=== PATIENT | female | born 1975 | race Caucasian/White ===

== ENCOUNTER 2018-11-11 13:35 | Emergency (ER) | payer OTHER ==
[2018-11-11 14:33] VITALS: BP 174/94; PULSE 105; RESP 16; TEMP 98.8
[2018-11-11] MEDS ORDERED: HYDROcodone/APAP 7.5-325MG 1 EACH TAB PO ONE (14:46)
--- NOTE | 2018-11-11 15:37 | XR ---
EXAMINATION TYPE: XR Hip LT and AP Pelvis DATE OF EXAM: 11/11/2018 COMPARISON: NONE HISTORY: Pain. Possible hip dislocation on the left. Patient describes a pop. TECHNIQUE: A single AP view of the pelvis is obtained. Two views of the left hip are obtained. FINDINGS: There is no acute fracture/dislocation evident in the pelvis. The hip and sacroiliac join ts appear symmetric and unremarkable. The overlying soft tissue appears unremarkable. There is a fra cture deformity of the right inferior pubic ramus. This appears subacute as there is no extensive amanda kira formation. Two views of left hip show no acute fracture or dislocation. No focal lytic or sclerotic lesion seen in the proximal left femur. There is a curvilinear density at the medial aspect of the left femoral neck that could relate to atherosclerosis or heterotopic ossification. The overlying soft tissue is u nremarkable. There is a small cam deformity of the left femoral head neck junction. IMPRESSION: 1. No evidence of left hip fracture or dislocation. Small cam deformity and moderate bilateral femora l acetabular arthropathy. 2. Subacute appearing fracture of the right inferior pubic ramus.
--- NOTE | 2018-11-11 15:47 | ED ---
Extremity Problem HPI - General Chief complaint: Extremity Problem,Nontraumatic Stated complaint: Poss Hip Dislocated Time Seen by Provider: 11/11/18 14:38 Source: patient, RN notes reviewed Mode of arrival: ambulatory Limitations: physical limitation - History of Present Illness Initial comments: This a 43-year-old female presents emergency Department chief complaint left hip pain. Patient states that she rolled over in bed and felt a severe pop with sudden onset of pain. Patient states that she can barely move her left hip secondary to pain. Denies any falls no recent trauma. Denies any prior surgeries or any problems her left hip in the past. Patient has no symptoms that radiate into her leg denies any discoloration, anesthesias, pain in her lower leg. She does have chronic back pain no she takes Tylenol Motrin for. - Related Data Previous Rx's Medication Instructions Recorded HYDROcodone/APAP 7.5-325MG [[place] 1 tab PO Q6HR PRN 3 Days #12 tab 11/11/18 7.5-325] Ibuprofen [Motrin] 600 mg PO Q8HR PRN #30 tab 11/11/18 Allergies Allergy/AdvReac Type Severity Reaction Status Date / Time No Known Allergies Allergy Verified 11/11/18 14:30 Review of Systems ROS Statement: Those systems with pertinent positive or pertinent negative responses have been documented in the HPI. ROS Other: All systems not noted in ROS Statement are negative. Past Medical History Past Medical History: No Reported History Past Surgical History: No Surgical Hx Reported Past Psychological History: No Psychological Hx Reported Smoking Status: Current every day smoker Past Alcohol Use History: Daily Past Drug Use History: Marijuana General Exam Limitations: physical limitation General appearance: alert, in no apparent distress Respiratory exam: Present: normal lung sounds bilaterally. Absent: respiratory distress, wheezes, rales, rhonchi, stridor Cardiovascular Exam: Present: regular rate, normal rhythm, normal heart sounds. Absent: systolic murmur, diastolic murmur, rubs, gallop, clicks Extremities exam: Present: other (Left hip limited range of motion secondary pain there is diffuse tenderness, pedal pulses are equal bilaterally the lower extremities equal color equal warmth) Skin exam: Present: warm, dry, intact, normal color. Absent: rash Course Vital Signs 11/11/18 14:30 Temperature 98.8 F Pulse Rate 105 H Respiratory 16 Rate Blood Pressure 174/94 O2 Sat by Pulse 100 Oximetry Medical Decision Making - Medical Decision Making 43-year-old female presented for left hip pain. X-ray was obtained that showed possibility of a pelvic fracture. CT was obtained shows avulsion versus ligamentous versus muscular skeletal injury. I do feel clinically that she has a ligamentous versus muscular tear. She will follow-up with orthopedics she'll be provided pain medication anti-inflammatories. Disposition Clinical Impression: Hip strain, Muscle tear Disposition: HOME SELF-CARE Condition: Stable Instructions (If sedation given, give patient instructions): Hip Sprain (ED) Additional Instructions: Please return to the Emergency Department if symptoms worsen or any other concerns. Prescriptions: Ibuprofen [Motrin] 600 mg PO Q8HR PRN #30 tab PRN Reason: Pain HYDROcodone/APAP 7.5-325MG [[place] 7.5-325] 1 tab PO Q6HR PRN 3 Days #12 tab PRN Reason: Pain Is patient prescribed a controlled substance at d/c from ED?: Yes When asked, does pt state using other controlled substances?: No If prescribed controlled substance>3 days was MAPS reviewed?: Prescribed <3 Days If opioid is for acute pain is fill amount 7 days or less?: Yes If Rx opioid, was Start Talking consent form obtained?: Yes Referrals: Jay Saldaña DO [Primary Care Provider] - 1-2 days Ricardo Salazar DO [Doctor of Osteopathic Medicine] - 1-2 days Time of Disposition: 16:38
--- NOTE | 2018-11-11 16:09 | CT ---
EXAMINATION TYPE: CT pelvis wo con DATE OF EXAM: 11/11/2018 COMPARISON: X-ray 11/11/2018 HISTORY: Left hip pain with inability to move left leg. Patient denies injury CT DLP: 185.3 mGycm Automated exposure control for dose reduction was used. FINDINGS: Osseous structures are intact. No acute fracture. Arthropathy of the hips with hypertrophic change of the acetabulum suggestive of femoral acetabular impingement. No erosive changes. Tiny linear density along the medial margin of the left femoral neck to small to characterize. Degenerative change involving the lower lumbar spine with facet arthropathy. IMPRESSION: THERE IS A LINEAR DENSITY ALONG THE LEFT FEMORAL NECK WHICH IS NONSPECIFIC AND TOO SMALL TO CHARACTER IZE. TINY AVULSION INJURY IN THE DIFFERENTIAL DIAGNOSIS. ADDITIONALLY THERE IS AN AREA OF LOW ATTENUA TION ALONG THE MUSCULATURE IN THE REGION OF THIS DENSITY. THIS COULD REPRESENT A MUSCULAR OR TENDINOU S INJURY OR SMALL AMOUNT OF FLUID. MRI RECOMMENDED FOR FURTHER EVALUATION.
== END 2018-11-11 17:07 | disposition home or self-care (01) ==
LOC: EC 13:35
DX: S76.012A Strain of muscle, fascia and tendon of left hip, initial encounter (principal); F17.200 Nicotine dependence, unspecified, uncomplicated; X50.9XXA Other and unspecified overexertion or strenuous movements or postures, initial encounter
CPT/HCPCS: 72192; 73502; 99284

== ENCOUNTER 2024-03-31 11:04 | Inpatient (IN) | payer MEDICAID, OTHER ==
--- NOTE | 2024-03-31 11:26 | ED ---
General Adult HPI - General Chief complaint: Psychiatric Symptoms Stated complaint: Fall-R wrist injury Time Seen by Provider: 03/31/24 11:20 Source: patient, RN notes reviewed Mode of arrival: wheelchair Limitations: no limitations - History of Present Illness Initial comments: This is a 48-year-old female resents emergency department with multiple comp laints. States that she has been having pain to her right wrist over the past few weeks after she fell and has had residual pain since. She has full range of motion of the right wrist however this exacerbates pain. She denies paresthesias. Denies previous surgeries right wrist. Additionally, states that she has been having difficulty with swallowing over the past 5 to 6 months. States that she feels food gets stuck in her throat and will have episodes of emesis. She is also had a amount of weight loss over this time period as well due to not eating. Patient has a history of alcohol abuse and currently drinks approximately 12 cans of beer per day. She also smokes about a pack of ciga rettes per day over the past 30+ years. Patient has lost in follow-up with primary and specialists over the past 2 years. - Related Data Previous Rx's Medication Instructions Recorded Folic Acid 1 mg PO DAILY 30 Days #30 tab 04/04/24 Melatonin 10 mg PO HS 30 Days #60 tab 04/04/24 Mirtazapine [Remeron] 7.5 mg PO HS 30 Days #15 tab 04/04/24 Multivitamins, Thera [Multivitamin 1 each PO DAILY 30 Days #30 tab 04/04/24 (formulary)] Nicotine 14Mg/24Hr Patch [Habitrol] 1 patch TRANSDERM DAILY patch 04/04/24 Pantoprazole [Protonix] 40 mg PO AC-BRKFST 30 Days #30 tab 04/04/24 Thiamine [Vitamin B-1] 100 mg PO DAILY 30 Days #30 tab 04/04/24 traZODone HCL [Desyrel] 50 mg PO HS 30 Days #30 tab 04/04/24 Allergies Allergy/AdvReac Type Severity Reaction Status Date / Time No Known Allergies Allergy Verified 03/31/24 22:18 Review of Systems ROS Statement: Those systems with pertinent positive or pertinent negative responses have been documented in the HPI. ROS Other: All systems not noted in ROS Statement are negative. Past Medical History Past Medical History: No Reported History Past Surgical History: No Surgical Hx Reported Past Psychological History: No Psychological Hx Reported Smoking Status: Current every day smoker Past Alcohol Use History: Daily Past Drug Use History: Marijuana - Past Family History Mother Family Medical History: Hypertension General Exam - General Exam Comments Initial Comments: Visual Physical Exam Vital signs reviewed General: Well-appearing, nontoxic, no acute distress. Head: Normocephalic, atraumatic Eyes: PERRLA, EOMI ENT: Airway patent Chest: Nonlabored breathing Skin: No visual rash, normal skin tone Neuro: Alert and oriented 3 Musculoskeletal: No gross abnormalities Limitations: no limitations General appearance: alert, in no apparent distress, cachectic Eye exam: Present: normal appearance, PERRL, EOMI. Absent: scleral icterus, conjunctival injection, periorbital swelling ENT exam: Present: normal exam, mucous membranes moist Neck exam: Present: normal inspection. Absent: tenderness, meningismus, lymphadenopathy Respiratory exam: Present: normal lung sounds bilaterally, wheezes (bilateral). Absent: respiratory distress, rales, rhonchi, stridor Cardiovascular Exam: Present: regular rate, normal rhythm, normal heart sounds. Absent: systolic murmur, diastolic murmur, rubs, gallop, clicks GI/Abdominal exam: Present: soft, normal bowel sounds. Absent: distended, tenderness, guarding, rebound, rigid Right Hand Wrist exam: Present: normal inspection, full ROM (w/ pain), tenderness. Absent: swelling, abrasion, ecchymosis, deformity Vascular: Present: normal capillary refill, radial pulse (2+). Absent: vascular compromise Back exam: Present: normal inspection Psychiatric exam: Present: depressed, suicidal ideation Course Vital Signs 03/31/24 11:17 Temperature 98 F Pulse Rate 120 H Respiratory 16 Rate Blood Pressure 130/84 O2 Sat by Pulse 100 Oximetry Procedures - Orthopedic Splinting/Casting Injury #1 Side: right Upper Extremity Injury Location: short arm Upper Extremity Immobilizer: posterior splint, Paco wrap, synthetic pre-padded splint Medical Decision Making - Medical Decision Making Was pt. sent in by a medical professional or institution (, PA, OVEN BUILDER, urgent care, hospital, or longterm...) When possible be specific @ -No Did you speak to anyone other than the patient for history (EMS, parent, family, police, friend...)? What history was obtained from this source @ -No Did you review nursing and triage notes (agree or disagree)? Why? @ -I reviewed and agree with nursing and triage notes Were old charts reviewed (outside hosp., previous admission, EMS record, old EKG, old radiological studies, urgent care reports/EKG's, longterm records)? Report findings @ -No old charts were reviewed Differential Diagnosis (chest pain, altered mental status, abdominal pain women, abdominal pain men, vaginal bleeding, weakness, fever, dyspnea, syncope, headache, dizziness, GI bleed, back pain, seizure, CVA, palpatations, mental health, musculoskeletal)? @ -Differential Mental Health Depression, anxiety, bipolar, psychosis, schizophrenia, borderline personality, situational depression, adjustment disorder, behavioral disorder, brain tumor, malingering, substance abuse, encephalopathy, medication reaction, dementia, hypothyroidism, degenerative neurologic disorder, lupus.... This is not meant to be all-inclusive list EKG interpreted by me (3pts min.). @ -None X-rays interpreted by me (1pt min.). @ -X-ray of the right wrist reveals a nondisplaced minimally impacted transverse distal radial metaphyseal fracture extending into the distal radial ulnar joint CT interpreted by me (1pt min.). @ -None done U/S interpreted by me (1pt. min.). @ -None done What testing was considered but not performed or refused? (CT, X-rays, U/S, labs)? Why? @ -None What meds were considered but not given or refused? Why? @ -None Did you discuss the management of the patient with other professionals (professionals i.e. , PA, OVEN BUILDER, lab, RT, psych nurse, social sciences chair, chauffeur, teacher, chief program officer, counter caser)? Give summary @ -No Was smoking cessation discussed for >3mins.? @ -No Was critical care preformed (if so, how long)? @ -No Were there social determinants of health that impacted care today? How? (Homelessness, low income, unemployed, alcoholism, drug addiction, transportation, low edu. Level, literacy, decrease access to med. care, senior care, rehab)? @ -No Was there de-escalation of care discussed even if they declined (Discuss DNR or withdrawal of care, Hospice)? DNR status @ -No What co-morbidities impacted this encounter? (DM, HTN, Smoking, COPD, CAD, Cancer, CVA, ARF, Chemo, Hep., AIDS, mental health diagnosis, sleep apnea, morbid obesity)? @ -None Was patient admitted / discharged? Hospital course, mention meds given and route, prescriptions, significant lab abnormalities, going to OR and other pertinent info. @ -admitted. 48-year-old female with wrist pain and difficulty swallowing. On patient's original triage it was noted that patient has been having suicidal ideation. On my discussion with the patient she states that she has been in chronic pain over the past few years and would like for everything to end. States that if she were to commit suicide she would most likely go into her garage and of carbon monoxide poisoning. Additionally patient does have pain with range of motion of the right wrist and pain to palpation of the wrist. X-rays remarkable for a nondisplaced minimally impacted transverse distal fracture. Patient was placed in a splint. Discussed with patient at bedside recommend laboratory evaluation for difficulty swallowing and imaging however she has refused at this time. Patient is adamant that she would like to leave. Evaluation by psychiatric nurse was completed where was recommended that patie nt be admitted to psychiatric facility due to suicidal ideation with plan and intent. Additionally patient at bedside she is still refusing care and would like to leave AGAINST MEDICAL ADVICE however patient has been petitioned by psychiatry and will be admitted for further evaluation. Undiagnosed new problem with uncertain prognosis? @ -No Drug Therapy requiring intensive monitoring for toxicity (Heparin, Nitro, Insulin, Cardizem)? @ -No Were any procedures done? @ -ortho splinting Diagnosis/symptom? @ -suicidal ideation, radial fracture Acute, or Chronic, or Acute on Chronic? @ -acute Uncomplicated (without systemic symptoms) or Complicated (systemic symptoms)? @ -complicated Side effects of treatment? @ -No Exacerbation, Progression, or Severe Exacerbation? @ -No Poses a threat to life or bodily function? How? (Chest pain, [place], [place], pneumonia, PE, COPD, DKA, ARF, appy, cholecystitis, CVA, Diverticulitis, Homicidal, Suicidal, threat to staff... and all critical care pts) @ -yes - Lab Data Result diagrams: 04/01/24 08:38 04/03/24 12:48 Lab Results 03/31/24 Range/Units 19:14 Influenza Type A (PCR) Not Detected (Not Detectd) Influenza Type B (PCR) Not Detected (Not Detectd) RSV (PCR) Not Detected (Not Detectd) SARS-CoV-2 (PCR) Not Detected (Not Detectd) Disposition Clinical Impression: Radial fracture, Depression, Suicidal ideation Disposition: ADMITTED IP TO THIS HOSP Condition: Serious
--- NOTE | 2024-03-31 12:05 | XR ---
EXAMINATION TYPE: XR wrist complete RT DATE OF EXAM: 03/31/2024 COMPARISON: NONE HISTORY: 48-year-old female pain after fall, history of previous injury TECHNIQUE: 4 views FINDINGS: There appears to be a nondisplaced but minimally impacted transverse distal radial metaphys eal fracture. Fracture line probably extending into the distal radial ulnar joint. Associated soft ti ssue swelling. Mild change first CMC joint. IMPRESSION: Nondisplaced but minimally impacted transverse distal radial metaphyseal fracture. Fractu re line probably extends into the distal radioulnar joint. Associated soft tissue swelling. [facility], , 03/31/2024 12:03 PM
[2024-03-31] MEDS ORDERED: MAGNESIUM HYDROXIDE 2,400 MG/30 ML CUP PO PRN (21:32)
[2024-03-31] MEDS ORDERED: MAG HYDROX/AL HYDROX/SIMETH 355 ML BOTTLE PO PRN (21:32)
[2024-03-31] MEDS ORDERED: traZODone HCL 50 MG TAB PO PRN (21:32)
[2024-03-31] MEDS ORDERED: ACETAMINOPHEN TAB 325 MG TAB PO PRN (21:32)
[2024-03-31] MEDS ORDERED: IBUPROFEN 600 MG TAB PO PRN (21:32)
[2024-03-31] MEDS ORDERED: LORazepam 2 MG/ML INJ IM PRN (21:32)
[2024-03-31] MEDS ORDERED: LORazepam 1 MG TAB PO PRN ×2 (21:40)
[2024-04-01] MEDS: LORazepam 1 MG TAB PO PRN (02:51)
[2024-04-01 07:18] VITALS: RESP 16
[2024-04-01] MEDS: FOLIC ACID 1 MG TAB PO SCH (08:53)
[2024-04-01] MEDS: THIAMINE 100 MG TAB PO SCH (08:53)
[2024-04-01] MEDS: NICOTINE 14MG/24HR PATCH TRANSDERM SCH (08:53)
[2024-04-01] MEDS: MULTIVITAMINS, THERA 1 EACH TAB PO SCH (08:53)
[2024-04-01 09:22] LABS: Basophils # (A) 0.1 k/uL (0-0.2); Basophils % (A) 1 %; Eosinophils # (A) 0.1 k/uL (0-0.7); Eosinophils % (A) 1 %; HCT 41.8 % (34.0-46.0); HGB 13.5 gm/dL (11.4-16.0); Lymphocytes # (A) 3.9 k/uL (1.0-4.8); Lymphocytes % (A) 34 %; MCH 33.9 pg (25.0-35.0); MCHC 32.2 g/dL (31.0-37.0); Macrocytosis Moderate; Mean Platelet Volume 7.9; Monocytes # (A) 0.9 k/uL (0-1.0); Monocytes % (A) 8 %; Neutrophils # (A) 6.4 k/uL (1.3-7.7); Neutrophils % (A) 55 %; Platelet Count 372 k/uL (150-450); RBC 3.98 m/uL (3.80-5.40); RDW 14.5 % (11.5-15.5); WBC 11.7 k/uL (3.8-10.6)
[2024-04-01 09:47] LABS: AST 87 U/L (14-36); African American GFR (CKD) >90 (>60 ml/min/1.73 sqM); Albumin 3.3 g/dL (3.5-5.0); Alkaline Phosphatase 198 U/L (38-126); Anion Gap 10 mmol/L; Blood Urea Nitrogen 2 mg/dL (7-17); Calcium 9.2 mg/dL (8.4-10.2); Carbon Dioxide 23 mmol/L (22-30); Chloride 98 mmol/L (98-107); Glucose 130 mg/dL (74-99); Non-African American GFR(CKD) >90 (>60 ml/min/1.73 sqM); Sodium 131 mmol/L (137-145); Total Bilirubin 1.2 mg/dL (0.2-1.3); Total Protein 7.1 g/dL (6.3-8.2)
[2024-04-01 10:12] LABS: ALT 40 U/L (4-34)
--- NOTE | 2024-04-01 11:58 | P.HP ---
Psychiatric H&P - . H&P Date: 04/01/24 History & Physical: Allergies Allergy/AdvReac Type Severity Reaction Status Date / Time No Known Allergies Allergy Verified 03/31/24 22:18 Vital Signs Temp 98.1 F 04/01/24 06:48 Pulse 137 H 04/01/24 06:48 Resp 16 04/01/24 06:48 BP 123/85 04/01/24 06:48 Pulse Ox 97 04/01/24 06:48 FiO2 Intake & Output 03/31/24 04/01/24 04/01/24 18:59 06:59 18:59 Weight 37.648 kg 32.914 kg Laboratory Last Values WBC 11.7 k/uL (3.8-10.6) H 04/01/24 08:38 RBC 3.98 m/uL (3.80-5.40) 04/01/24 08:38 Hgb 13.5 gm/dL (11.4-16.0) 04/01/24 08:38 Hct 41.8 % (34.0-46.0) 04/01/24 08:38 MCV 105.0 fL (80.0-100.0) H 04/01/24 08:38 MCH 33.9 pg (25.0-35.0) 04/01/24 08:38 MCHC 32.2 g/dL (31.0-37.0) 04/01/24 08:38 RDW 14.5 % (11.5-15.5) 04/01/24 08:38 Plt Count 372 k/uL (150-450) 04/01/24 08:38 MPV 7.9 04/01/24 08:38 Neutrophils % 55 % 04/01/24 08:38 Lymphocytes % 34 % 04/01/24 08:38 Monocytes % 8 % 04/01/24 08:38 Eosinophils % 1 % 04/01/24 08:38 Basophils % 1 % 04/01/24 08:38 Neutrophils # 6.4 k/uL (1.3-7.7) 04/01/24 08:38 Lymphocytes # 3.9 k/uL (1.0-4.8) 04/01/24 08:38 Monocytes # 0.9 k/uL (0-1.0) 04/01/24 08:38 Eosinophils # 0.1 k/uL (0-0.7) 04/01/24 08:38 Basophils # 0.1 k/uL (0-0.2) 04/01/24 08:38 Macrocytosis Moderate 04/01/24 08:38 Sodium 131 mmol/L (137-145) L 04/01/24 08:38 Potassium 4.0 mmol/L (3.5-5.1) 04/01/24 08:38 Chloride 98 mmol/L (98-107) 04/01/24 08:38 Carbon Dioxide 23 mmol/L (22-30) 04/01/24 08:38 Anion Gap 10 mmol/L 04/01/24 08:38 BUN 2 mg/dL (7-17) L 04/01/24 08:38 Creatinine 0.38 mg/dL (0.52-1.04) L 04/01/24 08:38 Est GFR (CKD-EPI)AfAm >90 (>60 ml/min/1.73 sqM) 04/01/24 08:38 Est GFR (CKD-EPI)NonAf >90 (>60 ml/min/1.73 sqM) 04/01/24 08:38 Glucose 130 mg/dL (74-99) H 04/01/24 08:38 Calcium 9.2 mg/dL (8.4-10.2) 04/01/24 08:38 Total Bilirubin 1.2 mg/dL (0.2-1.3) 04/01/24 08:38 AST 87 U/L (14-36) H 04/01/24 08:38 ALT 40 U/L (4-34) H 04/01/24 08:38 Alkaline Phosphatase 198 U/L (38-126) H 04/01/24 08:38 Total Protein 7.1 g/dL (6.3-8.2) 04/01/24 08:38 Albumin 3.3 g/dL (3.5-5.0) L 04/01/24 08:38 TSH 13.400 mIU/L (0.465-4.680) H 04/01/24 08:38 Influenza Type A (PCR) Not Detected (Not Detectd) 03/31/24 19:14 Influenza Type B (PCR) Not Detected (Not Detectd) 03/31/24 19:14 RSV (PCR) Not Detected (Not Detectd) 03/31/24 19:14 SARS-CoV-2 (PCR) Not Detected (Not Detectd) 03/31/24 19:14 04/01/24 11:43 IDENTIFYING DATA: Patient is a 48-year-old female, unemployed, currently staying in [place] CHIEF COMPLAINT: "Pain" HPI: Patient presented to the hospital on 03/31 with a right wrist injury. Per ED note, "states that she has been having pain to her right wrist over the past few weeks after she fell and has had residual pain since. She has full range of motion of the right wrist. States that she has been having difficulty with swallowing over the past 5 to 6 months. States that she feels food gets stuck in her throat will have episodes of emesis. She has had an amount of weight loss over that time period as well due to not eating. Patient has a history of alcohol abuse and currently drinks approximately 12 cans of beer per day she has lost in follow-up with primary and specialist over the past 2 years." EPS assessment revealed, "patient wanted to leave AMA. Patient disclosed to triage that they have suicidal thoughts. Upon further exploration of the statements, patient reports passive suicidal ideation. When asked about a specific plan, patient states there are several ways to do it but she has only thought about carbon monoxide. Patient reports physical health issues over the last 4 to 6 months, chronic pain, not sleeping but 20 to 30 minutes a day sometimes, trouble swallowing, significant weight loss of 26 pounds during the 4 to 6-month period." Patient seen and evaluated on the unit and was agreeable to speak to sql report writer in office. She states she has been having issues with pain, specifically her hip and wrist and states that she fell roughly 3 weeks ago. She reports difficulty swallowing which resulted in a significant amount of weight loss. She states being unable to sleep because of her severe pain however does not report feeling fatigued throughout the day. She states she has been drinking roughly 12-12 ounce beers per day however she does not feel like she has a problem drinking and has never gone to rehab and is not interested at the moment. She feels like this is her only way of consuming calories as she is unable to swallow food. She reports low energy as well as 2 incidents of suicidal ideations that appear to be more passive in nature as she denied any p robyn or intent. At this time, patient denies any suicidal or homicidal ideations intent or plan. At this time patient denies any auditory or visual hallucinations. Patient denies any flight of ideas racing thoughts and increased in goal directed behavior. Patient admits to using tobacco. PAST PSYCHIATRIC HISTORY: Patient has a history of alcohol use disorder. Patient denies being on any psychiatric medications. Patient denies any previous psychiatric hospitalizations. Patient denies any psychiatric outpatient follow-up. Patient denies any history of suicide attempts in the past. PMH: as per ER note ALLERGIES: as per EMR SUBSTANCE USE HISTORY: Patient reports smoking 1 pack/day of cigarettes and 12 pack of beer per day over the course of several years FAMILY PSYCHIATRIC/SUBSTANCE USE HISTORY: She reports her daughter has depression SOCIAL HISTORY: Patient is and has 2 kids that are grown. She currently lives in [place] and is unemployed. Highest level of education is 11th grade. She denied any legal issues MENTAL STATUS EXAM: General Appearance: Patient appears to be older than stated age is alert, directable, and attempts to cooperate. Patient appears to have poor hygiene and grooming. Behavior: Patient is seated without any agitated behavior. Speech: Patient's speech is fluent and nonpressured. Mood/Affect: Patient reports their mood is "upset", affect is congruent and constricted. Suicidality/Homicidality: Patient denies having any homicidal ideation intent or plan. Denies any suicidal ideations intent or plan Perceptions: Patient denies any visual hallucinations and denies any auditory hallucinations Though content/process: There is no evidence of any delusional thought content and thought process is linear and goal-directed. Memory and concentration: AOX3, grossly intact for the purposes of this session. Can spell "WORLD" backwards Judgment and insight: Poor STRENGTHS/WEAKNESSES: strength is that patient is resilient. Weakness is that patient has poor judgment, heavy alcohol use and is impulsive INTELLECT: Average IMPRESSIONS: Major depressive disorder Alcohol use disorder, severe Generalized anxiety disorder with panic attacks Nicotine dependence PLAN: -Patient is admitted under involuntary status to MHU for stabilization of psychiatric symptoms and safety. Patient has not signed adult voluntary form and medication consent and is placed in patient's chart. A second certification was completed and along with petition will be filed for court. -Medications : Start mirtazapine 7.5 mg at bedtime for mood/sleep/appetite, melatonin 5 mg at bedtime for sleep -Ativan and Haldol PRN for agitation/aggression -Started thiamine, MVM for etoh use -CIWA protocol with Ativan PRN for ETOH withdrawal. -Patient was counselled on substance abuse and desired to cut back on use-Will offer patient subtance use rehab however she declined at this moment -Patient was informed of the risks, benefits and side effects of the medication and patient verbally consented to taking the medications. Patient signed med consent form and was placed in chart. -Internal Medicine consult to perform medical evaluation and physical. -NRT -nicotine patch -SW on board for discharge planning. Encourage patient to participate in groups to work on coping skills. Will await deferral and court date.
--- NOTE | 2024-04-01 12:08 | P.CNOR ---
History of Present Illness - [facility] Consult date: 04/01/24 Requesting physician: Bobby Turner Consult reason: other (Fractured wrist) History of present illness: Patient is a 48 y/o female who presented to the emergency department yesterday due to right wrist pain over the past couple weeks. Orthopedics was consulted due to right wrist distal radius fracture. Patient was seen at bedside this morning on the [facility] unit with splint and Paco wrap present to the right upper extremity. Patient states about 2 to 3 weeks ago she tripped and fell onto an outstretched hand. She says over the past few weeks she has been managing her pain with [id number] pain medication. Patient states the pain has been tolerable but it has not gotten any better. She says the right hand does feel weak. Patient denies any previous orthopedic surgical history. Patient denies being on any blood thinners. Patient denies chest pain, fever, shortness of breath, nausea, vomiting, change in vision, loss of bowel/bladder control. Past Medical History Past Medical History: No Reported History Additional Past Medical History / Comment(s): Right radial fx whereby pt states she "fell about 3 weeks ago." from 03/31/2024 History of Any Multi-Drug Resistant Organisms: None Reported Past Surgical History: No Surgical Hx Reported Past Anesthesia/Blood Transfusion Reactions: No Reported Reaction Past Psychological History: No Psychological Hx Reported Smoking Status: Current every day smoker Past Alcohol Use History: Daily, Heavy Additional Past Alcohol Use History / Comment(s): Pt states she drinks at least 12 beers daily x several years. Pt states "I start drinking in the morning and drink all day." Past Drug Use History: Marijuana Additional Drug Use History / Comment(s): UDS not obtained 03/31/2024 Medications and Allergies Home Medications Medication Instructions Recorded Confirmed Type No Known Home Medications 03/31/24 03/31/24 History Allergies Allergy/AdvReac Type Severity Reaction Status Date / Time No Known Allergies Allergy Verified 03/31/24 22:18 Physical Examination Inspection: Negative for any open fractures, significant erythema/wounds. Paco bandage and splint present to the right upper extremity over the forearm. Sensation: Equal, symmetric, bilat intact throughout the upper extremities Palpation: Moderate tenderness palpation over the right distal radius. NTTP throughout rest of exam Range of motion: Full range of motion throughout bilateral elbows in flexion extension. Patient does have good range of motion in the shoulders and forward elevation, abduction and external/internal rotation. Patient does have limited range of motion of the right wrist in flexion's extension secondary to injury to the wrist. Patient is able to wiggle digits and upper extremities bilaterally. Motor: 4/5 in all major motor groups in left upper extremity. 4/5 in resisted right shoulder abduction, forward elevation, internal/external rotation. 4-/5 in resisted right elbow flexion to extension. Right wrist motor exam not performed due to injury Neurovascular: radial pulse intact, 2+ bilaterally. Cap refill under 3 seconds in digits of upper extremities. Special test: Negative Homans bilaterally. Results - Labs Labs: Abnormal Lab Results - Last 24 Hours (Table) 04/01/24 04/01/24 Range/Units 08:38 08:38 WBC 11.7 H (3.8-10.6) k/uL MCV 105.0 H (80.0-100.0) fL Sodium 131 L (137-145) mmol/L BUN 2 L (7-17) mg/dL Creatinine 0.38 L (0.52-1.04) mg/dL Glucose 130 H (74-99) mg/dL AST 87 H (14-36) U/L ALT 40 H (4-34) U/L Alkaline Phosphatase 198 H (38-126) U/L Albumin 3.3 L (3.5-5.0) g/dL TSH 13.400 H (0.465-4.680) mIU/L H & H 04/01/24 Range/Units 08:38 Hgb 13.5 (11.4-16.0) gm/dL Hct 41.8 (34.0-46.0) % Result Diagrams: 04/01/24 08:38 04/01/24 08:38 - Diagnostic results Wrist/Hand x-ray: report reviewed, image reviewed (Right wrist x-ray does demonstrate right distal radius fracture nondisplaced, impacted) Assessment and Plan Assessment: 1. Right distal radius fracture Plan: 1. Right distal radius fracture - right wrist x-ray does demonstrate right distal radius fracture nondisplaced, impacted. I did review the findings of the imaging and exam with my attending, Dr. Ferrer. At this time we are not recommending any emergent orthopedic surgical intervention. I did change the splint at bedside this morning. Patient be nonweightbearing to the right upper extremity. Pain medication as needed. Patient to follow-up with Dr. Ferrer in the outpatient setting in 1 week. Patient is stable from Orthopedic standpoint for discharge. At this time orthopedics is signing off. Please do not hesitate to contact us for any further questions. 2. Appreciate medical management 3. Pain management -Tylenol; Motrin 4. GI prophylaxis -MiraLAX; milk of mag 5. DVT prophylaxis recs 6. PT/OT -nonweightbearing right upper extremity 7. Appreciate consult Time with Patient: Less than 30
[2024-04-01 15:03] VITALS: BMI 15.7
[2024-04-01 16:01] LABS: Chol/HDL Ratio 3.84 Ratio; LDL Cholesterol,Calculated 114.7 mg/dL (0.0-131.0)
[2024-04-01] MEDS: MIRTAZAPINE 15 MG TAB PO SCH (20:59)
[2024-04-01] MEDS: MELATONIN 5 MG TABLET PO SCH (21:00)
--- NOTE | 2024-04-01 22:21 | P.PN ---
Progress Note - Text Progress Note Date: 04/01/24 Attempted to see the patient in the MHU on 04/01 at 2100. The patient refused to be seen or be evaluated.
[2024-04-02 06:59] VITALS: TEMP 97.9
--- NOTE | 2024-04-02 11:03 | P.PN ---
Progress Note - Text Progress Note Date: 04/02/24 Interval History: Patient was seen in groups and was directable and agreeable to speak with sheet writer in the office. She reports poor sleep overnight despite staff reporting 7 hours of sleep. She denied any pain interference with her sleep but states that she was up the entire night. Despite the lack of sleep, patient denied any fatigue or adverse effects to the medications. She states she has never done a sleep study and this was recommended to her for outpatient follow-up. Orthopedics al so recommended patient to follow-up in 1 week given her wrist fracture. She continues to report poor appetite and dietitian is recommending pured texture diet. Patient denied any alcohol cravings and still does not wish to accept any help with her alcohol use. She reported low anxiety today. At this time patient denies any suicidal or homicidal ideations, intent or plan. Patient denies any auditory, visual hallucinations and denies any paranoia or delusions. Patient denies any side effects from the medications and has been compliant with meds. Mental Status Exam: General Appearance: Patient appears to be older than stated age is alert, directable, and cooperative. Behavior: Patient is calmly seated without any agitated behavior. Patient ambulates via walker Speech: Patient's speech is fluent and nonpressured. Mood/Affect: Mood is improving mildly, affect is congruent and constricted. Suicidality/Homicidality: Patient denies having any suicidal or homicidal ideation intent or plan. Perceptions: Patient denies any visual hallucinations and denies any auditory hallucinations Though content/process: There is no evidence of any delusional thought content and thought process is linear and goal-directed. Memory and concentration: AOX3, grossly intact for the purposes of this session Judgment and insight: Improving mildly Assessment Major depressive disorder Alcohol use disorder, severe Generalized anxiety disorder with panic attacks Nicotine dependence Plan: -Patient continues to meet criteria for inpatient psychiatric admission for symptom stabilization and safety. Patient has not signed adult voluntary form and medication consent and was placed in patient's chart. -Medications: Continue Remeron 7.5 mg at bedtime for mood/sleep/appetite, increase melatonin to 10 mg at bedtime for sleep, start trazodone 50 mg at bedtime for sleep -When necessary Ativan and Haldol for agitation/aggression. -Labs: Reviewed, TSH elevated, fT4 ordered -NRT -nicotine patch -Orthopedics recommending patient to follow-up in 1 week -SW on board for discharge planning. Encouraged the patient to participate in milieu. Currently awaiting deferral with tax associate attorney and court date.
[2024-04-02 13:16] LABS: ALT 27 U/L (4-34); AST 65 U/L (14-36); African American GFR (CKD) >90 (>60 ml/min/1.73 sqM); Alkaline Phosphatase 177 U/L (38-126); Anion Gap 3 mmol/L; Blood Urea Nitrogen 3 mg/dL (7-17); Calcium 8.9 mg/dL (8.4-10.2); Carbon Dioxide 27 mmol/L (22-30); Chloride 98 mmol/L (98-107); Glucose 71 mg/dL (74-99); Non-African American GFR(CKD) >90 (>60 ml/min/1.73 sqM); Potassium 3.8 mmol/L (3.5-5.1); Sodium 128 mmol/L (137-145); Total Bilirubin 0.9 mg/dL (0.2-1.3); Total Protein 6.5 g/dL (6.3-8.2)
[2024-04-02 13:32] LABS: T4, Free (Free Thyroxine) 1.14 ng/dL (0.78-2.19)
[2024-04-02 15:39] LABS: Appearance,Urine Clear (Clear); Bilirubin,Urine Negative (Negative); Blood,Urine Negative (Negative); Color,Urine Colorless; Glucose,Urine (UA) Negative (Negative); Ketones,Urine Negative (Negative); Leukocyte Esterase,Urine Negative (Negative); Nitrite,Urine Negative (Negative); Protein,Urine Negative (Negative); Specific Gravity,Urine 1.002 (1.001-1.035); Urobilinogen,Urine <2.0 mg/dL (<2.0)
[2024-04-02 15:52] LABS: Amphetamine Screen,Urine Not Detected (NotDetected); Benzodiazepines Screen,Urine Detected (NotDetected); Cocaine Screen,Urine Not Detected (NotDetected); Opiate Screen,Urine Not Detected (NotDetected); Phencyclidine Screen,Urine Not Detected (NotDetected); Urn Cannabinoid Scrn Not Detected (NotDetected)
[2024-04-02 15:53] LABS: Barbiturate Screen,Urine Not Detected (NotDetected); Methadone Screen, Urine Not Detected (NotDetected); Oxycodone Screen, Urine Not Detected (NotDetected); Tricyclic Antidepressant,Urine Not Detected (NotDetected)
[2024-04-02] MEDS: MELATONIN 5 MG TABLET PO SCH (21:06)
[2024-04-02] MEDS: traZODone HCL 50 MG TAB PO SCH (21:07)
--- NOTE | 2024-04-03 01:30 | P.CONS ---
History of Present Illness - Reason for Consult Consult date: 04/02/24 - History of Present Illness The patient is a 48-year-old female with no known PMH who had presented to the emergency room with complaints. Patient reported that she had a fall several weeks ago and injured her right wrist and has been experiencing pain there with activities. She also reports dysphagia with solids and occasionally with liquids for the past 5 to 6 months. Reports that as a result she has been unable to eat as much as usual and has lost a significant amount of weight after 40 pounds in the past 6 months. Denies a dyne aphasia but does report some epigastric abdominal discomfort with eating. She did report ongoing alcohol abuse drinking 12 cans of beer daily. Also reports feeling generalized weakness due to her poor appetite and diet. Denies experiencing chest discomfort, nausea, vomiting, diarrhea, fever, chills, cough. Denies any illicit substance use. The patient was admitted to the mental health unit for depression and generalized anxiety disorder with panic attacks. Review of systems: Pertinent positives and negatives as discussed in HPI, a complete review of systems was performed and all other systems are negative. Physical examination: General: non toxic, no distress, appears at stated age, normal weight Derm: no unusual rashes/lesions, no unusual ecchymoses, warm, dry Head: atraumatic, normocephalic, symmetric Eyes: EOMI, no lid lag, anicteric sclera ENT: Nose and ears atraumatic, no thrush, no pharyngeal erythema Neck: trachea midline, supple Mouth: no lip lesion, mucus membranes moist Cardiovascular: S1S2 reg, no murmur, no edema Lungs: CTA bilateral, no rhonchi, no rales , no accessory muscle use Abdominal: soft, nontender to palpation, no guarding Ext: no gross muscle atrophy, no contractures, Neuro: No gross focal neuro deficits noted Psych: Alert, oriented, appropriate affect Assessment: Right distal radius fracture Dysphagia with significant weight loss with solids and liquids Hyponatremia Hypoglycemia Depression with anxiety and panic attacks Leukocytosis, no signs of active infection at this time, likely reactive Imaging: Wrist x-ray on the right side revealed a nondisplaced minimally impacted distal radial fracture. Data Review: Laboratory evaluation was remarkable for sodium 128, glucose 71, AST 65, alk phos 177, WBC count 11.7, with MCV 105. Plan: Orthopedic surgery recommendations appreciated. No aggressive intervention at t his time Consult GI in light of dysphagia and epigastric discomfort Monitor BMP for resolution of hyponatremia and hypoglycemia Encourage oral intake Defer management of depression and suicidal ideation to the primary psychiatry service Thank you for allowing us to participate in the care of this patient. We will follow peripherally. Do not hesitate to contact us with questions. Someone can be reached from the [facility] hospitalist group at all hours of the day at [phone]. Past Medical History Past Medical History: No Reported History Additional Past Medical History / Comment(s): Right radial fx whereby pt states she "fell about 3 weeks ago." from 03/31/2024 History of Any Multi-Drug Resistant Organisms: None Reported Past Surgical History: No Surgical Hx Reported Past Anesthesia/Blood Transfusion Reactions: No Reported Reaction Past Psychological History: No Psychological Hx Reported Smoking Status: Current every day smoker Past Alcohol Use History: Daily, Heavy Additional Past Alcohol Use History / Comment(s): Pt states she drinks at least 12 beers daily x several years. Pt states "I start drinking in the morning and drink all day." Past Drug Use History: Marijuana Additional Drug Use History / Comment(s): UDS not obtained 03/31/2024 - Past Family History Mother Family Medical History: Hypertension Medications and Allergies Home Medications Medication Instructions Recorded Confirmed Type No Known Home Medications 03/31/24 03/31/24 History Allergies Allergy/AdvReac Type Severity Reaction Status Date / Time No Known Allergies Allergy Verified 03/31/24 22:18 Physical Exam Vitals: Vital Signs Temp Pulse Resp BP Pulse Ox 04/02/24 06:58 97.9 F 98 16 120/83 96 Results CBC & Chem 7: 04/01/24 08:38 04/02/24 12:26 Labs: Abnormal Lab Results - Last 24 Hours (Table) 04/02/24 04/02/24 Range/Units 12:26 15:17 Sodium 128 L (137-145) mmol/L BUN 3 L (7-17) mg/dL Creatinine 0.37 L (0.52-1.04) mg/dL Glucose 71 L (74-99) mg/dL AST 65 H (14-36) U/L Alkaline Phosphatase 177 H (38-126) U/L Albumin 3.0 L (3.5-5.0) g/dL U Benzodiazepines Scrn Detected H (NotDetected)
[2024-04-03] MEDS: FERROUS SULFATE 325 MG TAB PO STA (09:53)
--- NOTE | 2024-04-03 10:21 | P.PN ---
Progress Note - Text Progress Note Date: 04/03/24 Interval History: Patient was seen wandering the hallways and was directable and agreeable to sp marge with ghost writer in the office. She states feeling well today and that she was finally able to get some sleep last night. Staff noted patient to be sleeping for 5 hours last night. Sleep hygiene was discussed with the patient and she was recommended to incorporate this into her regimen. Patient's prior alcohol use was discussed thoroughly with the patient including the guidelines for the standard recommended amount of alcohol intake per day for women. Patient was very open about her desire to continue drinking upon discharge however alcohol's long-term effects was discussed including patient's elevated liver enzymes and she was strongly encouraged to decrease its use however appears to be precontemplative today. Patient expresses poor appetite related to difficulty swallowing. Medical consulted GI related to patient's swallowing difficulties. Patient was able to see her yesterday during visitation and she signed a deferral for treatment with a nurse outreach case manager yesterday. At this time patient denies any suicidal or homicidal ideations, intent or plan. Patient denies any auditory, visual hallucinations and denies any paranoia or delusions. Patient denies any side effects from the medications and has been compliant with meds. Mental Status Exam: General Appearance: Patient appears to be order than stated age is alert, directable, and cooperative. Patient is very thin Behavior: Patient is calmly seated without any agitated behavior. Patient ambulates via walker Speech: Patient's speech is fluent and nonpressured. Mood/Affect: Mood is improving mildly, affect is congruent and blunted but reactive. Suicidality/Homicidality: Patient denies having any suicidal or homicidal ideation intent or plan. Perceptions: Patient denies any visual hallucinations and denies any auditory hallucinations Though content/process: There is no evidence of any delusional thought content and thought process is linear and goal-directed. Memory and concentration: AOX3, grossly intact for the purposes of this session Judgment and insight: Improving mildly Assessment Major depressive disorder Alcohol use disorder, severe Generalized anxiety disorder with panic attacks Nicotine dependence Plan: -Patient continues to meet criteria for inpatient psychiatric admission for symptom stabilization and safety. Patient has not signed adult voluntary form and medication consent and was placed in patient's chart. -Medications: Continue Remeron 7.5 mg at bedtime for mood/sleep/appetite, melatonin 10 mg at bedtime for sleep, trazodone 50 mg at bedtime for sleep -When necessary Ativan and Haldol for agitation/aggression. -Labs: fT4 returned back within normal limits, repeat BMP ordered as patient sodium was low -NRT -nicotine patch -CIWA protocol with Ativan PRN for ETOH withdrawal. -Orthopedics is recommending patient to follow-up in 1 week outpatient -SW on board for discharge planning. Encouraged the patient to participate in milieu. Patient signed a deferral yesterday with a nurse outreach case manager. Anticipate discharge home with tomorrow, social work confirmed no firearms in the home
[2024-04-03 13:35] LABS: African American GFR (CKD) >90 (>60 ml/min/1.73 sqM); Anion Gap 2 mmol/L; Blood Urea Nitrogen 4 mg/dL (7-17); Calcium 8.7 mg/dL (8.4-10.2); Carbon Dioxide 30 mmol/L (22-30); Chloride 98 mmol/L (98-107); Glucose 86 mg/dL (74-99); Non-African American GFR(CKD) >90 (>60 ml/min/1.73 sqM); Potassium 3.9 mmol/L (3.5-5.1); Sodium 130 mmol/L (137-145)
--- NOTE | 2024-04-03 15:13 | P.CONS ---
History of Present Illness - Reason for Consult Consult date: 04/03/24 Dysphagia, weight loss Requesting physician: Sinai Mai - Chief Complaint Wrist pain - History of Present Illness This is a 48-year-old female who had presented to the emergency department 3 days ago with multiple complaints including wrist pain, complaints of food getting stuck in her throat and difficulty with swallowing for the last 5 to 6 months, as well as unintentional weight loss. She has history of alcohol abuse and drinks about 12 beers a day has a history of depression and anxiety. She was admitted on voluntarily to the mental health unit for further evaluation and treatment. Gastroenterology was consulted for dysphagia and weight loss. Again patient states that she has difficulty with swallowing and feels that food gets stuck in her throat and then it will be painful in her chest with swallowing. She also states that she has had about 22 pound weight loss over the last few weeks duration. She denies any emesis no previous history of upper endoscopy. Denies history of peptic ulcer disease. Denies regular NSAID use. Review of Systems REVIEW OF SYSTEMS: CARDIOPULMONARY: No chest pain or shortness of breath. Gastrointestinal: No abdominal pain. No nausea or vomiting. No hematemesis, coffee-ground emesis. No rectal bleeding, or melena. Difficulty with swallowing, weight loss. GENITOURINARY: No dysuria or hematuria. MUSCULOSKELETAL: Reports normal range of motion., Joint pain. SKIN: No rashes. No jaundice. ENDOCRINE: No chills, fevers. No excessive weight gain or loss. No polydipsia or polyuria. PSYCHIATRIC: Unremarkable. NEUROLOGY: No change in mental status. Denies dizziness, headache. ENT: Vision unremarkable. CONSTITUTIONAL: Unintentional weight loss. No fever, chills, night sweats. Past Medical History Past Medical History: No Reported History Additional Past Medical History / Comment(s): Right radial fx whereby pt states she "fell about 3 weeks ago." from 03/31/2024 History of Any Multi-Drug Resistant Organisms: None Reported Past Surgical History: No Surgical Hx Reported Past Anesthesia/Blood Transfusion Reactions: No Reported Reaction Past Psychological History: No Psychological Hx Reported Smoking Status: Current every day smoker Past Alcohol Use History: Daily, Heavy Additional Past Alcohol Use History / Comment(s): Pt states she drinks at least 12 beers daily x several years. Pt states "I start drinking in the morning and drink all day." Past Drug Use History: Marijuana Additional Drug Use History / Comment(s): UDS not obtained 03/31/2024 - Past Family History Mother Family Medical History: Hypertension Medications and Allergies Home Medications Medication Instructions Recorded Confirmed Type No Known Home Medications 03/31/24 03/31/24 History Allergies Allergy/AdvReac Type Severity Reaction Status Date / Time No Known Allergies Allergy Verified 03/31/24 22:18 Physical Exam Vitals: Vital Signs Pulse BP 04/03/24 06:58 107 H 97/66 General appearance: The patient is alert, oriented, appears in no acute distress. HET: Head is normocephalic and atraumatic. Conjunctiva pink. Sclera anicteric. Neck: Supple without lymphadenopathy. Trachea midline. Heart: Regular. Lungs: Equal expansion, normal respiratory effort. Abdomen: Soft, nontender, nondistended. Skin: No rashes. No jaundice. Extremities: Normal skin color and turgor. No pedal edema. Neurological: No focal deficits. Alert and oriented x3. Results CBC & Chem 7: 04/01/24 08:38 04/03/24 12:48 Labs: Abnormal Lab Results - Last 24 Hours (Table) 04/02/24 04/03/24 Range/Units 15:17 12:48 Sodium 130 L (137-145) mmol/L BUN 4 L (7-17) mg/dL Creatinine 0.42 L (0.52-1.04) mg/dL U Benzodiazepines Scrn Detected H (NotDetected) Assessment and Plan (1) Dysphagia Narrative/Plan: 48-year-old female with alcohol use disorder with complaints of dysphagia for the last 5 to 6 months. Unclear etiology could be secondary to gastritis, peptic ulcer disease or other etiology. Need to consider possible esophageal stricture. Patient offered upper endoscopy however is declining as she states that she will be discharged tomorrow and would like to have it done as an outpatient. This is reasonable and we will try to treat symptomatically with Pr otonix 40 mg daily. Diet as tolerated. Current Visit: Yes Status: Acute Code(s): R13.10 - DYSPHAGIA, UNSPECIFIED SNOMED Code(s): 98858199 (2) Unintentional weight loss Current Visit: Yes Status: Acute Code(s): R63.4 - ABNORMAL WEIGHT LOSS SNOMED Code(s): 947620655 Plan: 1. Continue symptomatic and supportive care 2. Protonix 40 mg daily 3. Diet as tolerated 4. Patient offered upper endoscopy tomorrow however patient is declining and would like to have it done as an outpatient Thank you for this consultation, patient is cleared from gastroenterology for discharge. Dr. Brett Denson I agree with the dictator's note, documented as a scribe by Mary Joy.
[2024-04-04] MEDS: PANTOPRAZOLE 40 MG TABLET PO SCH (08:39)
[2024-04-04 08:43] VITALS: BP 94/62; PULSE 135
--- NOTE | 2024-04-04 12:44 | P.DS ---
Providers Date of admission: 03/31/24 21:18 Expected date of discharge: 04/04/24 Attending physician: Donita Wiseman MD Consults: 03/31/24 21:32 Consult Physician Routine Consulting Provider: Cece Parry Consult Reason/Comments: H&P and medical Do you want consulting provider notified?: Yes 03/31/24 23:42 Consult Physician Routine Consulting Provider: Scottie Ferrer Consult Reason/Comments: Fractured wrist Do you want consulting provider notified?: Yes, Notify in am 04/03/24 01:30 Consult Physician Urgent Consulting Provider: Senia Denson Consult Reason/Comments: Dysphagia, weight loss Do you want consulting provider notified?: Yes Primary care physician: Stated None - Discharge Diagnosis(es) (1) Major depressive disorder Current Visit: Yes Status: Acute Priority: High (2) Alcohol use disorder, severe, dependence Current Visit: Yes Status: Acute Priority: High (3) Generalized anxiety disorder with panic attacks Current Visit: Yes Status: Chronic Priority: Low (4) Nicotine dependence Current Visit: Yes Status: Acute Priority: Low Hospital Course: Admission HPI: Admission note was completed by blurb writer "Patient presented to the hospital on 03/31 with a right wrist injury. Per ED note, "states that she has been having pain to her right wrist over the past few weeks after she fell and has had residual pain since. She has full range of motion of the right wrist. States that she has been having difficulty with swallowing over the past 5 to 6 months. States that she feels food gets stuck in her throat will have episodes of emesis. She has had an amount of weight loss over that time period as well due to not eating. Patient has a history of alcohol abuse and currently drinks approximately 12 cans of beer per day she has lost in follow-up with primary and specialist over the past 2 years." EPS assessment revealed, "patient wanted to leave AMA. Patient disclosed to triage that they have suicidal thoughts. Upon further exploration of the statements, patient reports passive suicidal ideation. When asked about a specific plan, patient states there are several ways to do it but she has only thought about carbon monoxide. Patient reports physical health issues over the last 4 to 6 months, chronic pain, not sleeping but 20 to 30 minutes a day sometimes, trouble swallowing, significant weight loss of 26 pounds during the 4 to 6-month period." Patient seen and evaluated on the unit and was agreeable to speak to blurb writer in office. She states she has been having issues with pain, specifically her hip and wrist and states that she fell roughly 3 weeks ago. She reports difficulty swallowing which resulted in a significant amount of weight loss. She states being unable to sleep because of her severe pain however does not report feeling fatigued throughout the day. She states she has been drinking roughly 12-12 ounce beers per day however she does not feel like she has a problem drinking and has never gone to rehab and is not interested at the moment. She feels like this is her only way of consuming calories as she is unable to swallow food. She reports low energy as well as 2 incidents of suicidal ideations that appear to be more passive in nature as she denied any plan or intent. At this time, patient denies any suicidal or homicidal ideations intent or plan. At this time patient denies any auditory or visual hallucinations. Patient denies any flight of ideas racing thoughts and increased in goal directed behavior. Patient admits to using tobacco." Hospital course: Upon admission to the unit patient was admitted involuntarily on a petition and certificate and a second certificate was completed and faxed to the courts. Patient ended up signing a deferral with the assistant district attorney and agreeing to treatme nt.. Patient got along well with other patients on the unit and followed unit protocol. Patient was compliant with the medications and denied any side effects throughout hospital course. Patient was started on Remeron 7.5 mg at bedtime, melatonin which was increased to 10 mg at bedtime, trazodone 50 mg at bedtime. Patient spoke of her stressors and engaged in therapy both group and individual. Patient was also seen by medical team for history and physical exam. Patient was also seen by orthopedics given her wrist fracture and they recommended an outpatient follow-up in 1 week. Patient reported dysphagia with significant weight loss so GI was consulted as well and they recommended endoscopy outpatient started patient on Protonix. Patient to also follow-up with primary care outpatient given her chronic pain which is contributing to mood symptoms. Throughout the course of the hospitalization patient gradually improved with regards to mood, anxiety, sleep and returned back to their baseline level of functioning became more future oriented with improved insight and judgment. On the day of discharge patient denied any suicidal or homicidal ideations intent or plan denied any auditory or visual hallucinations. The patient denied any access to guns or weapons. Patient denied any paranoia and did not endorse any delusions. Patient does have a significant history of substance abuse and was counseled on abstaining from all substances including alcohol. Patient was offered however declined inpatient substance-abuse rehab. Patient was strongly encouraged to limit her alcohol intake to 1 standard drink per day per guidelines. Patient was also counseled on the medications and need for regular compliance and was encouraged to follow-up with their outpatient appointment for mental health and also for primary care. Prior to discharge a family meeting will be arranged by aids social worker to answer any questions and ensure safety upon discharge incuding making sure that guns/weapons are either removed from the home or locked away. Mental status exam: General Appearance: Patient appears to be older than stated age is alert, pleasant, and cooperative. Patient is in no acute distress and has improved hygiene and grooming Behavior: Patient is calmly seated without any agitated behavior. Ambulates via walker Speech: Patient's speech is fluent and nonpressured. Mood/Affect: Patient reports their mood is "better", affect is congruent and euthymic, reactive. Suicidality/Homicidality: Patient denies having any suicidal or homicidal ideation intent or plan. Perceptions: Patient denies any auditory or visual hallucinations. Though content/process: There is no evidence of any delusional thought content and thought process is linear and goal-directed. More future oriented Memory and concentration: AOX3, grossly intact for the purposes of this session. Can spell "WORLD" backwards correctly. Judgment and insight: Fair Impression: Major depressive disorder Alcohol use disorder, severe Generalized anxiety disorder with panic attacks Nicotine dependence Plan: -Continue with discharge today as patient has improved and stabilized psychiatrically and is not currently an imminent threat to themself and/or others. -Continue medications: Continue Remeron 7.5 mg at bedtime for mood/sleep/appetite, melatonin 10 mg at bedtime for sleep, trazodone 50 mg at bedtime for sleep -Patient was counseled on the need for medication compliance and appropriate follow-up at mental health and also primary care for medical issues. Patient verbalized understanding and agreed. -Social work to help coordinate patients discharge today arrange for and conduct family meeting to ensure safety upon discharge and answer any questions/concerns. also to ensure safe home environment that guns/weapons are either removed from the home or locked away. Social work also to arrange for patients follow up appointments with [facility] for psychiatric care along with follow up with primary care provider. -Patient counseled on abstaining from recreational drugs and marijuana and alcohol. Was informed/educated on the adverse effects on their physical and mental health. Patient verbally agreed and understood. Patient was offered substance abuse treatment however declined at this time. -Patient was instructed to return to the hospital or seek immediate medical care if their psychiatric or medical symptoms do worsen or reoccur. Abnormal Labs 04/01/24 04/01/24 04/02/24 08:38 08:38 12:26 WBC 11.7 H MCV 105.0 H Sodium 131 L 128 L BUN 2 L 3 L Creatinine 0.38 L 0.37 L Glucose 130 H 71 L AST 87 H 65 H ALT 40 H Alkaline Phosphatase 198 H 177 H Albumin 3.3 L 3.0 L TSH 13.400 H fT4 wnl U Benzodiazepines Scrn 04/02/24 04/03/24 15:17 12:48 WBC MCV Sodium 130 L BUN 4 L Creatinine 0.42 L Glucose AST ALT Alkaline Phosphatase Albumin TSH U Benzodiazepines Scrn Detected H Vital Signs Temp 97.9 F 04/04/24 06:00 Pulse 135 H 04/04/24 08:41 Resp 16 04/04/24 06:00 BP 94/62 04/04/24 08:41 Pulse Ox 98 04/04/24 06:00 FiO2 Intake & Output 04/03/24 04/04/24 04/04/24 18:59 06:59 18:59 Intake Total 550 Balance 550 Intake: Oral 550 Allergies Allergy/AdvReac Type Severity Reaction Status Date / Time No Known Allergies Allergy Verified 03/31/24 22:18 Patient Condition at Discharge: Stable Plan - Discharge Summary Discharge Rx Participant: Yes New Discharge Prescriptions: New Folic Acid 1 mg PO DAILY 30 Days #30 tab Melatonin 10 mg PO HS 30 Days #60 tab Multivitamins, Thera [Multivitamin (formulary)] 1 each PO DAILY 30 Days #30 tab Thiamine [Vitamin B-1] 100 mg PO DAILY 30 Days #30 tab traZODone HCL [Desyrel] 50 mg PO HS 30 Days #30 tab Nicotine 14Mg/24Hr Patch [Habitrol] 1 patch TRANSDERM DAILY patch Pantoprazole [Protonix] 40 mg PO AC-BRKFST 30 Days #30 tab Mirtazapine [Remeron] 7.5 mg PO HS 30 Days #15 tab Discharge Medication List Folic Acid 1 mg PO DAILY 30 Days #30 tab 04/04/24 [Rx] Melatonin 10 mg PO HS 30 Days #60 tab 04/04/24 [Rx] Mirtazapine [Remeron] 7.5 mg PO HS 30 Days #15 tab 04/04/24 [Rx] Multivitamins, Thera [Multivitamin (formulary)] 1 each PO DAILY 30 Days #30 tab 04/04/24 [Rx] Nicotine 14Mg/24Hr Patch [Habitrol] 1 patch TRANSDERM DAILY patch 04/04/24 [Rx] Pantoprazole [Protonix] 40 mg PO AC-BRKFST 30 Days #30 tab 04/04/24 [Rx] Thiamine [Vitamin B-1] 100 mg PO DAILY 30 Days #30 tab 04/04/24 [Rx] traZODone HCL [Desyrel] 50 mg PO HS 30 Days #30 tab 04/04/24 [Rx] Follow up Appointment(s)/Referral(s): Senia Denson MD [STAFF PHYSICIAN] - 04/09/24 (Dr. Denson's office ([facility]) will call to schedule an outpatient appointment next week for follow-up per KOURTNEY Hernandez) [facility] [REFERRING] - 1 Week [facility] [NON-STAFF] - 04/07/24 9:30 am ([place] Office: [address] [place] [address] With [place]) Scottie Ferrer MD [STAFF PHYSICIAN] - 04/10/24 9:40 am Patient Instructions/Handouts: How to Stop Smoking (DC), Wrist Fracture in Adults (GEN), Depression (DC), Abuse of Alcohol (DC), Anxiety (GEN), Dysphagia (GEN) Activity/Diet/Wound Care/Special Instructions: Avoid the use of street drugs and alcohol. Take all medications as prescribed. When you are in need of refills on your medications, please contact your medical provider and/or outpatient psychiatrist/provider to have this done. Please go to your scheduled outpatient appointment for aftercare treatment. If symptoms return or become worse, call the crisis line at and/or go to the nearest emergency room for evaluation. National Suicide Hotline 988 Discharge Disposition: HOME SELF-CARE
== END 2024-04-04 12:35 | disposition home or self-care (01) | DRG 754 ==
LOC: EC 11:04 → 3MHU 21:18
PROVIDERS: ADMIT Psychiatry & Neurology Psychiatry; ATTEND Psychiatry & Neurology Psychiatry
DX: F32.9 Major depressive disorder, single episode, unspecified (principal); E87.1 Hypo-osmolality and hyponatremia; F10.20 Alcohol dependence, uncomplicated; F17.210 Nicotine dependence, cigarettes, uncomplicated; F41.0 Panic disorder [episodic paroxysmal anxiety]; F41.1 Generalized anxiety disorder; G89.29 Other chronic pain; R13.10 Dysphagia, unspecified; R45.851 Suicidal ideations; S52.501A Unspecified fracture of the lower end of right radius, initial encounter for closed fracture; W01.0XXA Fall on same level from slipping, tripping and stumbling without subsequent striking against object, initial encounter; Z55.5 Less than a high school diploma; Z79.899 Other long term (current) drug therapy; Z11.52 Encounter for screening for COVID-19
CPT/HCPCS: 80048; 80053; 80061; 80306; 81003; 82075; 83036; 84439; 84443; 85025; 87636; 99285